=== PATIENT | female | born 1965 | race Caucasian/White ===

== ENCOUNTER 2018-06-22 05:34 | Day surgery (SDC) | payer OTHER ==
[~2018-06-22] VITALS: Ht 154.9 cm; Wt 76.2 kg
[~2018-06-22 05:34] MED LIST: ASPIR 8181 MG PO; CYMBALTA60 MG PO; GEMFIBROZIL 60600 M1 PO; INDERAL40 MG PO; LISINOPRIL10 MG PO; SYMBICORT160 MCG/4. INH; SYNTHROID50 MCG PO; TRAMADOL 50 MG50 MG PO; VENTOLIN HFA 1818 GM INH
[2018-06-22 10:00] VITALS: BP 153/98
--- NOTE | 2018-06-26 05:48 | O ---
[facility] [place] [address] OPERATIVE REPORT Name: MARGARITA MEDRANO Room #: DEP [facility]#: [id number] Admission: 06/22/18 Attend Phys: Jeferson Bucio MD Discharge: 06/22/18 Date of : 67 Report #: [id number] THIS REPORT FOR: //name// CC: NITHYA Mercedes Physician staff SEAN Bucio DATE OF SERVICE: 06/22/2018 PREOPERATIVE DIAGNOSIS: Recurrent left lower lid entropion. POSTOPERATIVE DIAGNOSIS: Recurrent left lower lid entropion. PROCEDURE: Left lower lid entropion repair. SURGEON: Jeferson Bucio M.D. ASSOCIATE PROFESSOR PHYSICIAN: None. ANESTHESIA: MAC. COMPLICATIONS: None. INDICATIONS FOR SURGERY: This pleasant 52-year-old woman has a left-sided orbital fracture with associated enophthalmos that has undergone several different attempts at reconstruction to correct the enophthalmos. 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 She presents today for a left lower lid entropion repair. Informed consent was obtained to include but not limited to the potential risk for loss of vision, bleeding, infection, failure to improve the problem and the potential need for further surgery or treatment. DESCRIPTION OF PROCEDURE: The patient was taken to the operating room where 2% Xylocaine with epinephrine mixed with equal parts 0.75% Marcaine with Wydase was administered transcutaneously and transconjunctivally to the left lower lid, left medial canthus and the left lateral canthus. The patient was subsequently prepped and draped in the usual sterile fashion. The left lower lid was everted, which disclosed a very dense cicatricial band in the lower lid retractors that were attached to the inferior border of the tarsal plate. An incision was made below the inferior border of the tarsal plate across the width of the lid. The tissue posterior to this was stuck to the inferior orbit. 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 The incision was made across [address] [address] OPERATIVE REPORT Name: MARGARITA MEDRANO Room #: DEP [facility].#: [id number] Admission: 06/22/18 Attend Phys: Jeferson Bucio MD Discharge: 06/22/18 Date of : 67 Report #: [id number] the entire width of the lid posteriorly. This allowed access to attach the lower lid retractors to more anteriorly located position on the anterior superior surface of the tarsal plate. Multiple interrupted 5-0 chromic sutures were placed as the retractors were reposited. This everted the lid nicely. The wounds were then cleaned and dressed with erythromycin ointment and the patient subsequently transported to the recovery area having tolerated the procedure well with no anesthetic or operative complications being noted. <ELECTRONICALLY SIGNED> By: Jeferson Bucio MD 06/26/18 0548 [id number] Jeferson Bucio MD /marianne
== END 2018-06-22 11:20 | disposition home or self-care (01) ==
LOC: TBA 05:34 → OR 05:34 → TBA 05:36 → OR 07:11
DX: H02.005 Unspecified entropion of left lower eyelid (principal); H05.402 Unspecified enophthalmos, left eye; I10 Essential (primary) hypertension; I25.2 Old myocardial infarction; E11.9 Type 2 diabetes mellitus without complications; K21.9 Gastro-esophageal reflux disease without esophagitis; F32.9 Major depressive disorder, single episode, unspecified; G43.909 Migraine, unspecified, not intractable, without status migrainosus; E03.9 Hypothyroidism, unspecified; Z90.710 Acquired absence of both cervix and uterus; Z90.49 Acquired absence of other specified parts of digestive tract; Z98.890 Other specified postprocedural states; Z79.899 Other long term (current) drug therapy; Z88.0 Allergy status to penicillin; Z88.8 Allergy status to other drugs, medicaments and biological substances; Z79.82 Long term (current) use of aspirin; Z87.891 Personal history of nicotine dependence; Z87.442 Personal history of urinary calculi; Z86.73 Personal history of transient ischemic attack (TIA), and cerebral infarction without residual deficits; Z98.0 Intestinal bypass and anastomosis status; Z88.2 Allergy status to sulfonamides
CPT/HCPCS: 50010; 50101; 50386; 50398; 51636; 56527; 56531; 62110; 62850; 70005